=== PATIENT | male | born 1965 | race Caucasian/White ===

== ENCOUNTER 2019-12-22 12:16 | Emergency (ER) | payer SELFPAY ==
[~2019-12-22] VITALS: Ht 172.7 cm; Wt 81.6 kg
--- NOTE | 2019-12-22 12:18 | NUR ---
PT BIBA AND TAKEN TO BED 9.
[2019-12-22 12:19] VITALS: BP 129/55
--- NOTE | 2019-12-22 12:19 | NUR ---
EKG CALLED TO BEDSIDE.
--- NOTE | 2019-12-22 12:25 | NUR ---
Pt BIBA from home c/o dry cough, SOB, body aches since 12/14. Pt states he tested + for covid on 12/14. VSS. SKIN IS PINK/WARM/DRY; AAOX4 WITH EVEN AND STEADY GAIT; LUNGS CLEAR BL; HR EVEN AND REGULAR; PT DENIES ANY FEVER, CP, SOB, OR COUGH AT THIS TIME; PATIENT STATES PAIN OF 8/10 AT THIS TIME; VSS; PATIENT POSITIONED FOR COMFORT; HOB ELEVATED; BEDRAILS UP X2; BED DOWN. ER MD MADE AWARE OF PT STATUS.
--- NOTE | 2019-12-22 12:33 | NUR ---
Xray is at bedside.
--- NOTE | 2019-12-22 12:39 | NUR ---
DR. CROW AT BEDSIDE EVALUATING PT.
[2019-12-22 12:41] LABS: BASOPHILS % (AUTO) 0.3 % (0.0-2.0); EOSINOPHILS % (AUTO) 0.3 % (0.0-4.0); HEMATOCRIT 39.1 % (36-52); HEMOGLOBIN 13.6 g/dL (12.0-18.0); LYMPHOCYTES # (AUTO) 1.3 K/uL (2.0-11.5); MEAN CORPUSCULAR HEMOGLOBIN 30 pg (27-31); MEAN CORPUSCULAR HGB CONC 35 g/dL (33-37); MEAN CORPUSCULAR VOLUME 87.4 fL (80-94); MONOCYTES # (AUTO) 0.8 K/uL (0.8-1.0); MONOCYTES % (AUTO) 9.5 % (1.7-9.3); NEUTROPHILS # (AUTO) 6.2 K/uL (1.8-7.7); NEUTROPHILS % (AUTO) 73.9 % (42.2-75.2); PLATELET COUNT (AUTO) 256 K/uL (140-450); RED BLOOD CELL COUNT(AUTO) 4.47 MIL/uL (4.20-6.10); RED CELL DISTRIBUTION WIDTH 13.3 % (11.6-13.7); WHITE BLOOD COUNT (AUTO) 8.4 K/uL (4.8-10.8)
[2019-12-22] MEDS ORDERED: guaiFENesin/CODEINE 100/10MG 5 ML UDC PO ONE (12:50)
[2019-12-22] MEDS ORDERED: IBUPROFEN 600 MG TAB PO ONE (12:50)
[2019-12-22 13:02] LABS: ALBUMIN 3.3 g/dL (3.4-5.0); ANION GAP 16.8 (8-16); CARBON DIOXIDE 23.6 mmol/L (21-32); CREATININE 0.7 mg/dL (0.6-1.3); POTASSIUM 3.4 mmol/L (3.5-5.1); TOTAL BILIRUBIN 0.5 mg/dL (0.0-1.0)
--- NOTE | 2019-12-22 13:20 | NUR ---
Pt able to ambulate around room with oxygen saturation remaining at 95% on room air. Dr Ball made aware.
[2019-12-22 13:48] VITALS: BP 110/51
--- NOTE | 2019-12-22 13:48 | NUR ---
Patient discharged with v/s stable. Written and verbal after care instructions given and explained. Patient alert, oriented and verbalized understanding of instructions. Ambulatory with steady gait. All questions addressed prior to discharge. ID band removed. Patient advised to follow up with PMD. Rx of AZITHROMYCIN AND CODEINE PHOSPHATE/GUAIFENESIN given. Patient educated on indication of medication including possible reaction and side effects. Opportunity to ask questions provided and answered.
== END 2019-12-22 13:48 | disposition home or self-care (01) ==
LOC: MED 12:16
DX: U07.1 COVID-19 (principal); J12.89 Other viral pneumonia; R05 Cough; Z88.0 Allergy status to penicillin
CPT/HCPCS: 36415; 71045; 80053; 84484; 85025; 93005; 99285

== ENCOUNTER 2021-05-24 18:49 | Emergency (ER) | payer SELFPAY ==
[~2021-05-24] VITALS: Ht 167.6 cm; Wt 72.6 kg
[2021-05-24 19:00] VITALS: BP 141/89
--- NOTE | 2021-05-24 19:04 | NUR ---
Pee ferguson in ED - 05/24/21 at 1904 by [facility] CALLED ON-CALL IP;PAGED BY EXCHANGE
--- NOTE | 2021-05-24 19:04 | NUR ---
AMBULATED TO ER BED 7
[2021-05-24] MEDS ORDERED: ONDANSETRON 4 MG/2 ML VIAL IVP ONE (19:05)
[2021-05-24] MEDS ORDERED: NACL 0.9% 1,000 ML IV ONE (19:05)
[2021-05-24] MEDS ORDERED: MORPHINE SULFATE 4 MG/ML SYR IVP ONE (19:05)
--- NOTE | 2021-05-24 19:30 | NUR ---
PT GOING DOWN FOR CT OF ABDOMEN VIA W/C AT [facility]. PT SAID THAT HIS PAIN IS DRASTICLY REDUCED AND HE DOESN NOT FEEL ANY NAUSEA AT THIS TIME.
--- NOTE | 2021-05-24 19:37 | NUR ---
PT RETURN FROM CT
--- NOTE | 2021-05-24 20:00 | NUR ---
20G ON THE RAC PLACED. PT WAS GIVEN DUE BOLUS. HE SAID HE ONLY HAS A LITTLE PAIN AND DOES NOT HAVE ANY NAUSEA AT THIS TIME. BLOOD WAS ALSO DRAWN AT THIS TIME.
[2021-05-24 20:11] LABS: BASOPHILS % (AUTO) 0.5 % (0.0-2.0); EOSINOPHILS # (AUTO) 0.1 K/uL (0-0.4); EOSINOPHILS % (AUTO) 0.8 % (0.0-4.0); HEMATOCRIT 40.9 % (36-52); HEMOGLOBIN 13.9 g/dL (12.0-18.0); LYMPHOCYTES # (AUTO) 1.8 K/uL (2.0-11.5); LYMPHOCYTES % (AUTO) 22.1 % (20.5-51.1); MEAN CORPUSCULAR HEMOGLOBIN 31 pg (27-31); MEAN CORPUSCULAR HGB CONC 34 g/dL (33-37); MEAN CORPUSCULAR VOLUME 89.5 fL (80-94); MONOCYTES # (AUTO) 0.5 K/uL (0.8-1.0); MONOCYTES % (AUTO) 6.3 % (1.7-9.3); NEUTROPHILS # (AUTO) 5.7 K/uL (1.8-7.7); NEUTROPHILS % (AUTO) 70.3 % (42.2-75.2); PLATELET COUNT (AUTO) 196 K/uL (140-450); RED BLOOD CELL COUNT(AUTO) 4.57 MIL/uL (4.20-6.10); RED CELL DISTRIBUTION WIDTH 13.5 % (11.6-13.7); WHITE BLOOD COUNT (AUTO) 8.2 K/uL (4.8-10.8)
[2021-05-24 20:27] LABS: ALBUMIN 3.5 g/dL (3.4-5.0); ANION GAP 10.3 (8-16); CREATININE 1.1 mg/dL (0.6-1.3); POTASSIUM 3.3 mmol/L (3.5-5.1); TOTAL BILIRUBIN 0.3 mg/dL (0.0-1.0)
--- NOTE | 2021-05-24 20:40 | NUR ---
Dr. May examining patient.
--- NOTE | 2021-05-24 20:50 | NUR ---
SPOKE WITH MD, PT HAD SAID THAT HE WAS ONLY FEELING A LITTLE PAIN AND WAS NOT NAUSEA. MD SAID NOT TO GIVE ORDERED MORPHINE AND ZOFRAN BECAUSE PT IS NOT IN NEED OF THEM. SAID MOST LIKEL PT PASSED A KIDNEY STONE AND WILL BE DISCHARGED.
[2021-05-24] MEDS ORDERED: TAMS0.4C96 PO (21:18)
--- NOTE | 2021-05-24 23:30 | NUR ---
PT LEFT WITH SON, SCRIPT SENT TO PHARMACY FOR FLOWMAX. PT AND FATHER VERBELIZED UNDERSTANDING OF MEDICATION THAT WAS SENT TO PHARMACY AND DISCHARGE INSTRUCTIONS. IV SITE TAKEN OUT CANNULA INTACT. PT HAS NO C/O OF PAIN AT THIS TIME, AND WAS ABLE TO AMBULATE INDEPENDAENTLY BELONGS IN HAND.
--- NOTE | 2021-05-26 14:26 | NUR ---
LATE ENTRY, 0.9% NS IV FLUIDS DISCONTINUED AT 2330 ON 05/24/21.
== END 2021-05-24 21:41 | disposition home or self-care (01) ==
LOC: MED 18:49
DX: N20.0 Calculus of kidney (principal); Z88.0 Allergy status to penicillin; Z98.890 Other specified postprocedural states
CPT/HCPCS: 36415; 74176; 80053; 82150; 83690; 85025; 99284; J7030; J2270; J2405